=== PATIENT | female | born 1980 | race Two or more races ===

== ENCOUNTER 2016-10-06 15:56 | Emergency (ER) | payer MEDICAID ==
[~2016-10-06] VITALS: Ht 162.6 cm; Wt 63.0 kg
[2016-10-06] MEDS ORDERED: ACETAMINOPHEN 325MG TABLET PO STA (16:59)
[2016-10-06] MEDS ORDERED: SODIUM CHLORIDE 0.9% 1,000 ML IV ONE (16:59)
[2016-10-06 17:34] LABS: BASOPHILS % 0.5 % (0.0-2.0); EOSINOPHILS % 0.4 % (0.0-5.0); HEMATOCRIT. 38.5 % (36.0-48.0); HEMOGLOBIN. 13.2 g/dL (12.0-16.0); LYMPHOCYTES % 14.9 % (20.0-50.0); MEAN CORPUSCULAR HEMOGLOBIN 28.4 pg (28.0-32.0); MEAN CORPUSCULAR VOLUME 82.7 fL (81.0-99.0); MEAN PLATELET VOLUME 8.7 fl (7.4-10.4); MONOCYTES % 7.3 % (2.0-8.0); NEUTROPHILS % 76.9 % (40.0-76.0); PLATELET 185 x1000/uL (130-400); RED BLOOD CELL COUNT 4.66 mill/uL (4.2-5.4); RED CELL DISTRIBUTION WIDTH 13.6 % (11.6-14.6)
[2016-10-06 17:37] LABS: INR 1.1; PROTHROMBIN TIME 11.1 sec
[2016-10-06 17:46] LABS: CARBON DIOXIDE 24 mEq/L (21-32); CHLORIDE 101 mEq/L (98-107)
[2016-10-06 17:47] LABS: TROPONIN I < 0.02 ng/mL (0.00-0.04)
[2016-10-06 17:49] LABS: HCG SCREEN NEGATIVE
[2016-10-06] MEDS ORDERED: LEVOFLOXACIN 500MG TABLET PO ONE (19:00)
[2016-10-06 20:07] VITALS: BP 108/71
== END 2016-10-06 20:22 | disposition home or self-care (01) ==
LOC: ER 17:40
DX: J18.9 Pneumonia, unspecified organism (principal); R00.0 Tachycardia, unspecified; Z98.890 Other specified postprocedural states
CPT/HCPCS: 36415; 71010; 80053; 83605; 84484; 84703; 85025; 85610; 87040; 87804; 93005; 96360; 99285; J7030; Z7610